=== PATIENT | female | born 1975 | race Caucasian/White ===

== ENCOUNTER 2022-09-26 23:26 | Emergency (ER) | payer OTHER ==
[~2022-09-26] VITALS: Ht 152.4 cm; Wt 63.5 kg
[2022-09-26 23:31] VITALS: BP_SYST 153
[2022-09-27] MEDS ORDERED: KETOROLAC TROMETHAMINE 60 MG/2 ML VIAL IM ONE (01:00)
[2022-09-27] MEDS ORDERED: METOCLOPRAMIDE HCL 10 MG TABLET PO ONE (01:00)
[2022-09-27] MEDS ORDERED: SUMAtriptan SUCCINATE 6 MG/0.5 ML VIAL SUBCUT ONE (01:00)
[2022-09-27] MEDS ORDERED: DIVALPROEX SODIUM 250 MG TABLET(DEPAKOTE) PO ONE (01:45)
[2022-09-27] MEDS ORDERED: METO-290 PO (03:50)
[2022-09-27] MEDS ORDERED: IBUP-1969 PO (03:50)
[2022-09-27 03:56] VITALS: BP_SYST 145
== END 2022-09-27 03:56 | disposition home or self-care (01) ==
LOC: SED 23:26
DX: G43.909 Migraine, unspecified, not intractable, without status migrainosus (principal); R11.0 Nausea; R20.0 Anesthesia of skin; Z79.899 Other long term (current) drug therapy
CPT/HCPCS: 99285; 81025; 70450; 76376; 96372; J8597; J1885; J3030

== ENCOUNTER 2022-12-09 00:16 | Emergency (ER) | payer OTHER ==
[~2022-12-09] VITALS: Ht 152.4 cm; Wt 63.5 kg
[~2022-12-09 00:16] MED LIST: IBUP-1969 PO; METO-290 PO
--- NOTE | 2022-12-09 00:27 | NUR ---
PATIENT PRESENTS WITH RIGHT THUMB INJURY, 5/10 PAIN X 3 DAYS
[2022-12-09 00:29] VITALS: BP_SYST 150; PULSE 84; RESP 17; TEMP 97.8; O2SAT 97
--- NOTE | 2022-12-09 01:38 | NUR ---
Patient to [facility] to [facility] for evaluation. Side rails up. Report given to SARAH GAINES.
--- NOTE | 2022-12-09 01:47 | NUR ---
Pt bib family member. c/o R thumb injury. Pt states to have been using a rubber band when it snapped and hit her R thumb. Noted slight tenderness on R nail bed. No other bruising or redness noted on thumb. Pt states 6/10 pain. Pt denies taking medication for pain. Pt denies N/V/D. Pt observed using cellphone with R thumb, no grimicing noted. Pt AAOX4. VSS. Skin dry and intact. Pt speaking full complete sentences. Pt in bed with side rails up. Pt family member at bedside.
--- NOTE | 2022-12-09 01:51 | NUR ---
ER at bedside examining patient.
[2022-12-09] MEDS ORDERED: CEPH-548 PO (02:08)
[2022-12-09 02:28] VITALS: BP_SYST 144; PULSE 80; RESP 14; TEMP 98.1; O2SAT 98
--- NOTE | 2022-12-09 02:28 | NUR ---
Patient given written and verbal discharge instructions and verbalizes understanding. ER MD discussed with patient the results and treatment provided. Patient in stable condition. ID arm band removed. Rx of CEPHALEXIN given. Patient educated on pain management and to follow up with PMD. Opportunity for questions provided and answered. Medication side effect fact sheet provided.
== END 2022-12-09 02:28 | disposition home or self-care (01) ==
LOC: SED 00:16
DX: S60.011A Contusion of right thumb without damage to nail, initial encounter (principal); L03.011 Cellulitis of right finger; Z79.899 Other long term (current) drug therapy; W45.0XXA Nail entering through skin, initial encounter; Y93.89 Activity, other specified; Y92.89 Other specified places as the place of occurrence of the external cause; Y99.8 Other external cause status
CPT/HCPCS: 99283